=== PATIENT | female | born 1935 | race Caucasian/White ===

== ENCOUNTER 2020-06-02 21:31 | Emergency (ER) | payer OTHER ==
[~2020-06-02] VITALS: Ht 152.4 cm; Wt 45.4 kg
[2020-06-02] MEDS ORDERED: LANOXIN125 MCG (21:41)
[2020-06-02] MEDS ORDERED: LANTUS SOL100 UNIT/1 (21:41)
[2020-06-02] MEDS ORDERED: LEVOTHYROXINE25 MCG (21:41)
[2020-06-02] MEDS ORDERED: ZESTRIL20 MG (21:42)
[2020-06-02] MEDS ORDERED: NORVASC5 MG (21:43)
[2020-06-02] MEDS ORDERED: TOPROL XL25 M1 (21:43)
[2020-06-02] MEDS ORDERED: SPIRONOLACTONE (21:43)
[2020-06-02] MEDS ORDERED: ZOCOR20 MG (21:44)
[2020-06-02] MEDS ORDERED: METFORMIN HCL500 M3 (21:44)
[2020-06-02] MEDS ORDERED: CIPRO500 MG (21:45)
[2020-06-03] MEDS ORDERED: LEVSIN/SL0.125 MG SL (04:18)
[2020-06-03] MEDS ORDERED: ZOFRAN4 MG PO (04:18)
== END 2020-06-03 04:29 | disposition home or self-care (01) ==
LOC: ER 21:31
DX: E86.0 Dehydration (principal); K52.89 Other specified noninfective gastroenteritis and colitis; R00.2 Palpitations